=== PATIENT | female | born 1950 | race Caucasian/White ===

== ENCOUNTER 2022-09-26 11:00 | Inpatient (IN) | payer OTHER, MEDICARE ==
[~2022-09-26 11:00] MED LIST: Iopamidol-370 76% 500 ML 1 ML ONE
[2022-09-26] MEDS ORDERED: CEFAZOLIN 1 GM VIAL ONE (11:16)
[2022-09-26] MEDS ORDERED: Fentanyl 100 MCG/2 ML VIAL ONE ×4 (11:35→19:21)
[2022-09-26 11:54] LABS: #Basophils 0.1 thou/uL (0.0-0.2); #Eosinphils 0.2 thou/uL (0.0-0.7); #Lymphocytes 2.1 thou/uL (1.20-3.40); #Monocytes 0.6 thou/uL (0.11-0.59); #Neutrophils 8.3 thou/uL (1.40-6.50); %Basophils 0.6 % (0.0-1.0); %Eosinophils 1.5 % (0.0-10.0); %Lymphocytes 18.4 % (21.0-51.0); %Monocytes 5.3 % (0.0-10.0); %Neutrophils 74.3 % (42.0-75.0); Hemoglobin 12.9 g/dL (12.0-16.0); Mean Corpuscular HGB CONC 33.5 g/dL (32.0-36.0); Mean Corpuscular Hemoglobin 32.4 pg (27.0-31.0); Mean Corpuscular Volume 96.6 fl (78.0-98.0); Mean Platelet Volume 7.6 fL (7.4-10.4); Platelet Count 318 10x3/uL (130-400); RBC Distribution Width 11.9 % (11.5-14.5); Red Blood Cell (RBC) Count 3.98 mill/uL (4.20-5.40); White Blood Cell (WBC) Count 11.2 10x3/uL (4.8-10.8)
[2022-09-26 12:03] LABS: ALT (SGPT) 19 U/L (8-55); AST (SGOT) 31 U/L (5-34); Alkaline Phosphatase 57 U/L (40-110); Anion Gap 15 mmol/L (10-20); BUN (Urea Nitrogen) 16 mg/dL (9.8-20.1); Bilirubin, Total 0.4 mg/dL (0.2-1.2); Calc. Creatinine Clearance 0 mL/min (70-130); Calcium 8.7 mg/dL (7.8-10.44); Carbon Dioxide 18 mmol/L (23-31); Chloride 108 mmol/L (98-107); Estimated GFR 59; Globulin 2.2 g/dL (2.4-3.5); Glucose 126 mg/dL (83-110); Potassium 3.9 mmol/L (3.5-5.1); Protein, Total 6.2 g/dL (5.8-8.1); Sodium 137 mmol/L (136-145)
[2022-09-26 12:08] LABS: INR-International Normal Ratio 0.9; PTT 24.6 sec (22.9-36.1); Prothrombin Time 12.8 sec (12.0-14.7)
[2022-09-26] MEDS ORDERED: Lidocaine 1% w/Epinephrine 1:100K 20 ML VIAL ONE (12:58)
[2022-09-26] MEDS ORDERED: CEFAZOLIN 2 GM in Sodium Chloride 0.9% 100 ML IVPB SCH (15:00)
[2022-09-26] MEDS ORDERED: Ondansetron ODT 4 MG TAB PO PRN (15:38)
[2022-09-26] MEDS ORDERED: Ipratropium/Albuterol 3 ML NEB NEB PRN (15:38)
[2022-09-26] MEDS ORDERED: Morphine 4 MG/ML VIAL SLOW IVP PRN (15:38)
[2022-09-26] MEDS ORDERED: hydrALAZINE 20 MG/ML VIAL SLOW IVP PRN (15:38)
[2022-09-26] MEDS ORDERED: Morphine 2 MG/ML VIAL SLOW IVP PRN (15:38)
[2022-09-26] MEDS ORDERED: Dextrose 5% in Water 1,000 ML IV PRN (15:38)
[2022-09-26] MEDS ORDERED: Ondansetron PF 4 MG/2 ML Vial IVP PRN (15:38)
[2022-09-26] MEDS ORDERED: Dextrose 50% Abboject 50 ML SYRINGE SLOW IVP PRN (15:38)
[2022-09-26] MEDS ORDERED: Cyclobenzaprine 10 MG TAB PO PRN (15:42)
[2022-09-26] MEDS ORDERED: traMADol HCl 50 MG TAB PO PRN (15:42)
[2022-09-26] MEDS ORDERED: Acetaminophen 500 MG TAB PO SCH (15:45)
[2022-09-26] MEDS ORDERED: traMADol HCl 50 MG TAB PO SCH (15:45)
[2022-09-26 15:58] LABS: Magnesium 1.9 mg/dL (1.6-2.6)
[2022-09-26 15:59] LABS: Phosphorus 2.9 mg/dL (2.3-4.7)
[2022-09-26] MEDS ORDERED: fentaNYL PF 100 MCG/2 ML SYRINGE ONE (16:57)
[2022-09-26] MEDS ORDERED: Succinylcholine 200 MG/10 ml SYRINGE FS ONE (17:08)
[2022-09-26] MEDS ORDERED: Lidocaine 2% 6 ML SYR ONE (17:08)
[2022-09-26] MEDS ORDERED: CEFAZOLIN 2 GM VIAL ONE (17:13)
[2022-09-26] MEDS ORDERED: Sodium Chloride 0.9% 100 ML ONE (17:13)
[2022-09-26] MEDS ORDERED: Dexamethasone 20 MG/5 ML VIAL ONE (17:28)
[2022-09-26] MEDS ORDERED: PHENYLEPHRINE-NS 100 MCG/ML 10 ML SYRINGE ONE (17:28)
[2022-09-26] MEDS ORDERED: Succinylcholine Chloride 100 MG/5 ML SYRINGE FS ONE (17:28)
[2022-09-26] MEDS ORDERED: Ondansetron PF 4 MG/2 ML Vial ONE (17:28)
[2022-09-26] MEDS ORDERED: PROPOFOL 200 MG/20 ML VIAL ONE (17:28)
[2022-09-26] MEDS ORDERED: Lidocaine 1% PF 5 ML VIAL ONE (17:28)
[2022-09-26 18:03] LABS: SARS-CoV-2 NAA Rapid Test Not Detected (NotDetected)
[2022-09-26] MEDS ORDERED: Promethazine HCl 25 MG/ML VIAL IM PRN (18:55)
[2022-09-26] MEDS ORDERED: Ondansetron HCl/PF 4 MG/2 ML Vial IVP PRN (18:55)
[2022-09-26] MEDS ORDERED: levETIRAcetam 500 MG/5 ML VIAL SLOW IVP SCH (20:30)
[2022-09-26] MEDS ORDERED: Potassium Phosphate 30 MMOL, Magnesium Sulfate 2 GM in Sodium Chloride 0.9% 250 ML IVPB SCH (21:00)
[2022-09-26] MEDS ORDERED: Sodium Chloride 0.9% 1,000 ML IV SCH (21:00)
[2022-09-26] MEDS ORDERED: Magnesium 2 GM/50 ML(in water) 2 GM in Premix Bag 1 BAG IVPB SCH (21:00)
[2022-09-26] MEDS ORDERED: TETANUS, DIPHTHERIA TOX,ADULT (TDVAX) 0.5 ML VIAL IM ONE (21:00)
[2022-09-26 21:39] VITALS: BMI 20.3
[2022-09-26] MEDS: Senokot S 8.6-50 MG TAB PO SCH (21:53)
[2022-09-26] MEDS: Fentanyl 100 MCG/2 ML VIAL SLOW IVP PRN (21:53)
[2022-09-26] MEDS: Ibuprofen 200 MG TAB PO PRN (21:54)
[2022-09-26] MEDS: Acetaminophen/Codeine 30-300mg Tablet PO PRN (21:55)
[2022-09-26] MEDS ORDERED: Famotidine 20 MG TAB PO SCH (22:45)
[2022-09-27] MEDS: Acetaminophen 325 MG TAB PO SCH ×5 (00:55→22:39)
[2022-09-27] MEDS: CEFAZOLIN 1 GM in Sodium Chloride 0.9% 100 ML IVPB SCH ×3 (00:55→17:47)
[2022-09-27] MEDS: Famotidine 20 MG TAB PO SCH (00:56)
[2022-09-27] MEDS: Fentanyl 100 MCG/2 ML VIAL SLOW IVP PRN ×3 (01:02→20:19)
[2022-09-27 06:25] LABS: #Lymphocytes 0.7 thou/uL (1.20-3.40); #Monocytes 0.8 thou/uL (0.11-0.59); #Neutrophils 8.4 thou/uL (1.40-6.50); %Basophils 0.1 % (0.0-1.0); %Eosinophils 0.1 % (0.0-10.0); %Lymphocytes 6.7 % (21.0-51.0); %Monocytes 7.6 % (0.0-10.0); %Neutrophils 85.6 % (42.0-75.0); Hemoglobin 10.1 g/dL (12.0-16.0); Mean Corpuscular HGB CONC 32.4 g/dL (32.0-36.0); Mean Corpuscular Hemoglobin 31.9 pg (27.0-31.0); Mean Corpuscular Volume 98.3 fl (78.0-98.0); Mean Platelet Volume 7.4 fL (7.4-10.4); Platelet Count 265 10x3/uL (130-400); Red Blood Cell (RBC) Count 3.17 mill/uL (4.20-5.40); White Blood Cell (WBC) Count 9.8 10x3/uL (4.8-10.8)
[2022-09-27 06:53] LABS: Anion Gap 13 mmol/L (10-20); BUN (Urea Nitrogen) 12 mg/dL (9.8-20.1); Calc. Creatinine Clearance 47 mL/min (70-130); Calcium 7.7 mg/dL (7.8-10.44); Carbon Dioxide 17 mmol/L (23-31); Chloride 111 mmol/L (98-107); Estimated GFR 70; Glucose 125 mg/dL (83-110); Magnesium 2.6 mg/dL (1.6-2.6); Potassium 4.6 mmol/L (3.5-5.1); Sodium 136 mmol/L (136-145)
[2022-09-27] MEDS: Polyethylene Glycol 3350 17 GM Packet PO SCH (08:52)
[2022-09-27] MEDS: Senokot S 8.6-50 MG TAB PO SCH ×2 (09:08→20:28)
[2022-09-27] MEDS ORDERED: CEFAZOLIN 1 GM VIAL ONE (16:54)
[2022-09-27] MEDS ORDERED: Sodium Chloride 0.9% 100 ML ONE (16:54)
[2022-09-27] MEDS ORDERED: Fentanyl 100 MCG/2 ML VIAL ONE (17:26)
[2022-09-27] MEDS ORDERED: fentaNYL PF 100 MCG/2 ML SYRINGE ONE ×2 (20:51→22:41)
[2022-09-27] MEDS ORDERED: Mineral Oil Sterile 10 ML VIAL ONE (20:56)
[2022-09-27] MEDS ORDERED: Thrombin 5000 UNITS/5 ML VIAL ONE (20:56)
[2022-09-27] MEDS ORDERED: Bacitracin Zinc Ointment 30 gm TUBE ONE (20:56)
[2022-09-27] MEDS ORDERED: Bupivacaine PF 0.5% 30 ML VIAL ONE (20:56)
[2022-09-27] MEDS ORDERED: Neomycin-Polymyxin 1 ML AMP ONE ×2 (21:02→21:39)
[2022-09-27] MEDS ORDERED: PROPOFOL 200 MG/20 ML VIAL ONE (21:30)
[2022-09-27] MEDS ORDERED: Ondansetron PF 4 MG/2 ML Vial ONE (21:30)
[2022-09-27] MEDS ORDERED: Dexamethasone 20 MG/5 ML VIAL ONE (21:30)
[2022-09-27] MEDS ORDERED: Lidocaine 1% PF 5 ML VIAL ONE (21:30)
[2022-09-27] MEDS ORDERED: Ketorolac Tromethamine 30 MG/ML VIAL ONE (21:30)
[2022-09-27] MEDS ORDERED: ePHEDrine 50 MG/ML VIAL ONE (21:30)
[2022-09-27] MEDS ORDERED: Propofol 500 MG/50 ML VIAL ONE (22:41)
[2022-09-27] MEDS ORDERED: PROPOFOL 20 ML ONE (22:42)
[2022-09-27] MEDS ORDERED: Promethazine HCl 25 MG/ML VIAL IM PRN (23:04)
[2022-09-27] MEDS ORDERED: Ondansetron HCl/PF 4 MG/2 ML Vial IVP PRN (23:04)
[2022-09-27] MEDS ORDERED: HYDROcodone/Acetaminophen 7.5/325 mg Tablet PO PRN (23:24)
[2022-09-27] MEDS ORDERED: CEFAZOLIN 1 GM in Sodium Chloride 0.9% 100 ML IVPB SCH (23:59)
[2022-09-28] MEDS: CEFAZOLIN 1 GM in Sodium Chloride 0.9% 100 ML IVPB SCH ×4 (03:15→19:58)
[2022-09-28] MEDS: Fentanyl 100 MCG/2 ML VIAL SLOW IVP PRN ×2 (03:15→06:05)
[2022-09-28] MEDS: Acetaminophen 325 MG TAB PO SCH ×4 (05:55→23:04)
[2022-09-28 06:08] LABS: #Lymphocytes 0.5 thou/uL (1.20-3.40); #Monocytes 0.4 thou/uL (0.11-0.59); #Neutrophils 8.3 thou/uL (1.40-6.50); %Basophils 0.3 % (0.0-1.0); %Eosinophils 0.1 % (0.0-10.0); %Lymphocytes 5.6 % (21.0-51.0); %Monocytes 3.8 % (0.0-10.0); %Neutrophils 90.3 % (42.0-75.0); Hemoglobin 9.2 g/dL (12.0-16.0); Mean Corpuscular HGB CONC 33.1 g/dL (32.0-36.0); Mean Corpuscular Hemoglobin 32.2 pg (27.0-31.0); Mean Corpuscular Volume 97.3 fl (78.0-98.0); Mean Platelet Volume 7.6 fL (7.4-10.4); Platelet Count 243 10x3/uL (130-400); Red Blood Cell (RBC) Count 2.85 mill/uL (4.20-5.40); White Blood Cell (WBC) Count 9.2 10x3/uL (4.8-10.8)
[2022-09-28] MEDS: Polyethylene Glycol 3350 17 GM Packet PO SCH (08:32)
[2022-09-28] MEDS: Senokot S 8.6-50 MG TAB PO SCH ×2 (08:33→20:00)
[2022-09-28] MEDS: Acetaminophen/Codeine 30-300mg Tablet PO PRN ×2 (14:17→20:01)
[2022-09-28] MEDS: Famotidine 20 MG TAB PO SCH (19:59)
[2022-09-29] MEDS: CEFAZOLIN 1 GM in Sodium Chloride 0.9% 100 ML IVPB SCH ×4 (02:20→22:08)
[2022-09-29] MEDS: Acetaminophen/Codeine 30-300mg Tablet PO PRN ×2 (05:58→16:38)
[2022-09-29] MEDS: Acetaminophen 325 MG TAB PO SCH (06:00)
[2022-09-29 06:55] LABS: #Eosinphils 0.1 thou/uL (0.0-0.7); #Lymphocytes 2.1 thou/uL (1.20-3.40); #Monocytes 0.7 thou/uL (0.11-0.59); #Neutrophils 4.9 thou/uL (1.40-6.50); %Basophils 0.5 % (0.0-1.0); %Lymphocytes 26.8 % (21.0-51.0); %Monocytes 8.5 % (0.0-10.0); %Neutrophils 63.2 % (42.0-75.0); Hemoglobin 7.9 g/dL (12.0-16.0); Mean Corpuscular Hemoglobin 33.1 pg (27.0-31.0); Mean Corpuscular Volume 97.4 fl (78.0-98.0); Platelet Count 213 10x3/uL (130-400); RBC Distribution Width 12.1 % (11.5-14.5); Red Blood Cell (RBC) Count 2.39 mill/uL (4.20-5.40); White Blood Cell (WBC) Count 7.8 10x3/uL (4.8-10.8)
[2022-09-29] MEDS ORDERED: Cyclobenzaprine 10 MG TAB PO PRN (07:11)
[2022-09-29] MEDS ORDERED: Gabapentin 300 MG CAP PO SCH (09:00)
[2022-09-29] MEDS: Dicyclomine 10 MG CAP PO SCH ×3 (09:52→22:11)
[2022-09-29] MEDS: Acetaminophen/Codeine 30-300mg Tablet PO SCH ×4 (09:52→22:10)
[2022-09-29] MEDS: Senokot S 8.6-50 MG TAB PO SCH ×2 (09:56→22:13)
[2022-09-29] MEDS: Polyethylene Glycol 3350 17 GM Packet PO SCH (09:56)
[2022-09-29] MEDS ORDERED: Iopamidol-370 76% 500 ML 1 ML ONE (12:18)
[2022-09-29] MEDS: Gabapentin 100 MG CAP PO SCH ×2 (15:10→22:11)
[2022-09-29] MEDS: Ibuprofen 200 MG TAB PO PRN (16:39)
[2022-09-29] MEDS ORDERED: Acetaminophen/Codeine 30-300mg Tablet PO PRN ×2 (16:56→17:54)
[2022-09-29] MEDS: Saccharomyces boulardii 250 MG CAP PO SCH (22:10)
[2022-09-29] MEDS: Amitriptyline HCl 25 MG TAB PO SCH (22:11)
[2022-09-29] MEDS: Levothyroxine Sodium 88 MCG TAB PO SCH (22:11)
[2022-09-29] MEDS: Famotidine 20 MG TAB PO SCH (22:11)
[2022-09-29] MEDS: Estradiol 1 MG TAB PO SCH (22:12)
[2022-09-30 05:04] LABS: #Eosinphils 0.3 thou/uL (0.0-0.7); #Monocytes 0.4 thou/uL (0.11-0.59); #Neutrophils 2.9 thou/uL (1.40-6.50); %Basophils 0.7 % (0.0-1.0); %Eosinophils 4.6 % (0.0-10.0); %Lymphocytes 35.3 % (21.0-51.0); %Monocytes 7.5 % (0.0-10.0); %Neutrophils 51.8 % (42.0-75.0); Hemoglobin 8.7 g/dL (12.0-16.0); Mean Corpuscular HGB CONC 32.8 g/dL (32.0-36.0); Mean Corpuscular Hemoglobin 31.9 pg (27.0-31.0); Mean Platelet Volume 7.4 fL (7.4-10.4); Platelet Count 268 10x3/uL (130-400); Red Blood Cell (RBC) Count 2.73 mill/uL (4.20-5.40); White Blood Cell (WBC) Count 5.7 10x3/uL (4.8-10.8)
[2022-09-30 05:44] LABS: Free T4 (Free Thyroxine) 1.15 ng/dL (0.70-1.48); Thyroid Stimulating Hormone 1.2215 uIU/mL (0.35-4.94)
[2022-09-30] MEDS ORDERED: Bacitracin Zinc Ointment 30 gm TUBE ONE (06:15)
[2022-09-30] MEDS ORDERED: Thrombin 5000 UNITS/5 ML VIAL ONE ×2 (06:15→07:49)
[2022-09-30] MEDS ORDERED: Bupivacaine PF 0.5% 30 ML VIAL ONE ×2 (06:15→07:49)
[2022-09-30] MEDS ORDERED: Mineral Oil Sterile 10 ML VIAL ONE ×2 (06:15→07:49)
[2022-09-30] MEDS ORDERED: Neomycin-Polymyxin 1 ML AMP ONE (06:15)
[2022-09-30] MEDS: Acetaminophen/Codeine 30-300mg Tablet PO SCH ×3 (06:29→18:09)
[2022-09-30] MEDS ORDERED: Sodium Chloride 0.9% 100 ML ONE (06:51)
[2022-09-30] MEDS ORDERED: CEFAZOLIN 2 GM VIAL ONE (06:51)
[2022-09-30] MEDS ORDERED: Phenylephrine 10 MG/ML VIAL ONE (06:52)
[2022-09-30] MEDS ORDERED: fentaNYL PF 100 MCG/2 ML SYRINGE ONE (06:52)
[2022-09-30] MEDS ORDERED: PROPOFOL 200 MG/20 ML VIAL ONE (06:58)
[2022-09-30] MEDS ORDERED: Lidocaine 1% PF 5 ML VIAL ONE (06:58)
[2022-09-30] MEDS ORDERED: Ondansetron PF 4 MG/2 ML Vial ONE (06:58)
[2022-09-30] MEDS ORDERED: Dexamethasone 20 MG/5 ML VIAL ONE (06:58)
[2022-09-30] MEDS ORDERED: Promethazine HCl 25 MG/ML VIAL IM PRN ×2 (08:39→09:51)
[2022-09-30] MEDS ORDERED: Ondansetron HCl/PF 4 MG/2 ML Vial IVP PRN (08:39)
[2022-09-30] MEDS ORDERED: Fentanyl 100 MCG/2 ML VIAL ONE (08:53)
[2022-09-30] MEDS: Senokot S 8.6-50 MG TAB PO SCH ×2 (09:00→21:20)
[2022-09-30] MEDS: Polyethylene Glycol 3350 17 GM Packet PO SCH (09:00)
[2022-09-30] MEDS: Dicyclomine 10 MG CAP PO SCH ×3 (09:00→21:19)
[2022-09-30] MEDS: Gabapentin 100 MG CAP PO SCH ×3 (09:00→21:20)
[2022-09-30] MEDS ORDERED: hydrALAZINE 20 MG/ML VIAL ONE (09:02)
[2022-09-30] MEDS ORDERED: Meperidine HCl/PF 25 MG/ML VIAL IM PRN (09:50)
[2022-09-30] MEDS: CEFAZOLIN 2 GM in Sodium Chloride 0.9% 100 ML IVPB SCH ×2 (14:32→21:21)
[2022-09-30] MEDS: Levothyroxine Sodium 88 MCG TAB PO SCH (21:20)
[2022-09-30] MEDS: Amitriptyline HCl 25 MG TAB PO SCH (21:20)
[2022-09-30] MEDS: Estradiol 1 MG TAB PO SCH (21:21)
[2022-09-30] MEDS: Saccharomyces boulardii 250 MG CAP PO SCH (21:21)
[2022-10-01] MEDS: Acetaminophen/Codeine 30-300mg Tablet PO SCH ×3 (00:01→12:42)
[2022-10-01] MEDS: CEFAZOLIN 2 GM in Sodium Chloride 0.9% 100 ML IVPB SCH (06:17)
[2022-10-01 07:03] LABS: #Lymphocytes 1.3 thou/uL (1.20-3.40); #Monocytes 0.7 thou/uL (0.11-0.59); %Basophils 0.2 % (0.0-1.0); %Eosinophils 0.5 % (0.0-10.0); %Lymphocytes 16.6 % (21.0-51.0); %Monocytes 8.3 % (0.0-10.0); %Neutrophils 74.4 % (42.0-75.0); Hemoglobin 8.6 g/dL (12.0-16.0); Mean Corpuscular HGB CONC 33.9 g/dL (32.0-36.0); Mean Corpuscular Hemoglobin 32.7 pg (27.0-31.0); Mean Corpuscular Volume 96.5 fl (78.0-98.0); Mean Platelet Volume 7.3 fL (7.4-10.4); Platelet Count 316 10x3/uL (130-400); RBC Distribution Width 11.9 % (11.5-14.5); Red Blood Cell (RBC) Count 2.62 mill/uL (4.20-5.40); White Blood Cell (WBC) Count 8.1 10x3/uL (4.8-10.8)
[2022-10-01 07:11] LABS: Anion Gap 9 mmol/L (10-20); BUN (Urea Nitrogen) 17 mg/dL (9.8-20.1); Calc. Creatinine Clearance 51 mL/min (70-130); Calcium 8.3 mg/dL (7.8-10.44); Carbon Dioxide 26 mmol/L (23-31); Chloride 106 mmol/L (98-107); Estimated GFR 78; Glucose 96 mg/dL (83-110); Sodium 137 mmol/L (136-145)
[2022-10-01] MEDS: Dicyclomine 10 MG CAP PO SCH (09:00)
[2022-10-01] MEDS: Gabapentin 100 MG CAP PO SCH (09:00)
[2022-10-01] MEDS: Senokot S 8.6-50 MG TAB PO SCH (09:00)
[2022-10-01] MEDS: Polyethylene Glycol 3350 17 GM Packet PO SCH (09:00)
[2022-10-01 12:14] VITALS: BP 124/70; TEMP 98.3
== END 2022-10-01 14:00 | disposition home health service (06) | DRG 902 ==
LOC: ERS 11:00 → SDC 16:10 → SJJU 19:43
PROVIDERS: ADMIT Surgery; ATTEND Surgery
PROC: 0HQ1XZZ Repair Face Skin, External Approach (ICD-10-PCS; principal; 2022-09-26)
PROC: 0JBF0ZZ Excision of Left Upper Arm Subcutaneous Tissue and Fascia, Open Approach (ICD-10-PCS; 2022-09-26)
PROC: 0JBH0ZZ Excision of Left Lower Arm Subcutaneous Tissue and Fascia, Open Approach (ICD-10-PCS; 2022-09-26)
PROC: 0JCP0ZZ Extirpation of Matter from Left Lower Leg Subcutaneous Tissue and Fascia, Open Approach (ICD-10-PCS; 2022-09-26)
PROC: 0JCF0ZZ Extirpation of Matter from Left Upper Arm Subcutaneous Tissue and Fascia, Open Approach (ICD-10-PCS; 2022-09-26)
PROC: 0KBB0ZZ Excision of Left Lower Arm and Wrist Muscle, Open Approach (ICD-10-PCS; 2022-09-27)
PROC: 0KB80ZZ Excision of Left Upper Arm Muscle, Open Approach (ICD-10-PCS; 2022-09-27)
PROC: 0HREX74 Replacement of Left Lower Arm Skin with Autologous Tissue Substitute, Partial Thickness, External Approach (ICD-10-PCS; 2022-09-30)
PROC: 0HRCX74 Replacement of Left Upper Arm Skin with Autologous Tissue Substitute, Partial Thickness, External Approach (ICD-10-PCS; 2022-09-30)
PROC: 0HBJXZZ Excision of Left Upper Leg Skin, External Approach (ICD-10-PCS; 2022-09-30)
DX: S51.822A Laceration with foreign body of left forearm, initial encounter (principal); I96 Gangrene, not elsewhere classified; R56.1 Post traumatic seizures; S06.0X1A Concussion with loss of consciousness of 30 minutes or less, initial encounter; R40.2412 Glasgow coma scale score 13-15, at arrival to emergency department; V57.5XXA Driver of pick-up truck or van injured in collision with fixed or stationary object in traffic accident, initial encounter; Z20.822 Contact with and (suspected) exposure to COVID-19; E03.9 Hypothyroidism, unspecified; S00.83XA Contusion of other part of head, initial encounter; S01.511A Laceration without foreign body of lip, initial encounter; E78.00 Pure hypercholesterolemia, unspecified; Z90.49 Acquired absence of other specified parts of digestive tract; Z79.890 Hormone replacement therapy; Z79.899 Other long term (current) drug therapy; Z88.5 Allergy status to narcotic agent; D64.9 Anemia, unspecified
CPT/HCPCS: 12013; 36415; 36416; 70450; 70486; 70553; 71045; 71260; 72125; 74177; 80048; 80053; 83735; 84100; 84146; 84436; 84439; 84443; 85025; 85379; 85610; 85730; 86850; 86900; 86901; 90471; 93005; 95712; 95819; 95957; 96365; 96375; 96376; 97139; C1894; G0390; J0360; J0690; J1100; J1885; J1953; J2370; J2405; J2704; J3010; J3475; J3490; J7030; J7050; P9045; Q9967; S0020; U0002